=== PATIENT | male | born 2000 | race Caucasian/White ===

== ENCOUNTER 2020-10-16 03:05 | Emergency (ER) | payer BC ==
[2020-10-16] MEDS ORDERED: Ciprofloxacin 0.3% Ophth Soln 2.5 ML Bottle EARBOTH ONE (03:17)
[2020-10-16] MEDS ORDERED: Take Home: Amoxicillin 875 MG Tab, 2 Tab Pack PO ONE (03:18)
[2020-10-16] MEDS ORDERED: Take Home: Amoxicillin/Clavulanate K 875-125 MG Tab, 2 Tab Pack PO ONE (03:22)
--- NOTE | 2020-10-16 11:20 | EDM.PDOC ---
ED HPI GENERAL MEDICAL PROBLEM - General Chief Complaint: ENT Problem Stated Complaint: Right ear pain, URI symptoms Time Seen by Provider: 10/16/20 03:15 Source of Information: Reports: Patient History Limitations: Reports: No Limitations - History of Present Illness INITIAL COMMENTS - FREE TEXT/NARRATIVE: Pt. presents to ER with complaints of ruptured R TM. He states that he has been having troubles with ear pain for the past couple of days, and states that it started draining earlier in the evening. Denies any fever or chills. Pt. 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 States that he currently does not have an ENT that he is aware of. He denies any vertigo. No bleeding from the ear. Denies any recent trauma. Onset: Today Onset Date: 10/16/20 Location: Reports: Head Treatments CONTRACTS MANAGER: Reports: Other (see below) Other Treatments CONTRACTS MANAGER: [email or web address] Right ear Pain Score (Numeric/FACES): 8 - Related Data Allergies Allergy/AdvReac Type Severity Reaction Status Date / Time No Known Allergies Allergy Verified 10/16/20 03:25 Home Meds: Home Meds . [No Known Home Meds] 01/06/19 [History] Past Medical History - Past Health History Medical/Surgical History: Denies Medical/Surgical History Other Gastrointestinal History: liver disorder Social & Family History - Tobacco Use Tobacco Use Status *Q: Unknown Ever Used Tobacco ED ROS GENERAL - Review of Systems Review Of Systems: Comprehensive ROS is negative, except as noted in HPI. ED EXAM, GENERAL - Physical Exam Exam: See Below Exam Limited By: No Limitations General Appearance: Alert, WD/WN, No Apparent Distress Ear Exam: Right Ear: Discharge (clear/whitish discharge. Extent of perforation partially obstructed due to discharge.), TM Perforation Course - Vital Signs Last Recorded V/S: Last Vital Signs Temp 37.1 C 10/16/20 03:05 Pulse 104 H 10/16/20 03:05 Resp 16 10/16/20 03:05 BP 129/72 10/16/20 03:05 Pulse Ox 98 10/16/20 03:05 - Orders/Labs/Meds Meds: Medications Discontinued Medications Generic Name Dose Route Start Last Admin Trade Name Freq PRN Reason Stop Dose Admin Amoxicillin 2 packet 10/16/20 03:18 Take Home: Amoxicillin 875 Mg Tab, 2 Tab Pack PO 10/16/20 03:19 ONETIME ONE Amoxicillin/Clavulanate Potassium 2 packet 10/16/20 03:22 10/16/20 03:42 Take Home: Amoxicillin/Clavulanate K 875-125 Mg Tab, 2 Tab Pack PO 10/16/20 03:23 2 packet ONETIME ONE Administration Ciprofloxacin 1 ml 10/16/20 03:17 10/16/20 03:41 Ciprofloxacin 0.3% Ophth Soln 2.5 Ml Bottle EARBOTH 10/16/20 03:18 1 bottle ONETIME ONE Administration Departure - Departure Time of Disposition: 03:45 Disposition: Home, Self-Care 01 Clinical Impression: Tympanic membrane perforation - Discharge Information Instructions: Amoxicillin; Clavulanic Acid Tablets, Ciprofloxacin otic solution, Eardrum Rupture, [id number] Referrals: PCP,None [Ordering Only Provider] - Forms: ED Department Discharge Additional Instructions: Cipro drops 1 drops to R ear twice daily for 10 days Augmentin 875mg 1 tab twice daily for 10 days Follow-up with Dr. Ibrahim next week. TM ruptures often heal on their own, but you may need a referral to ENT. Sepsis Event Note (ED) - Evaluation Sepsis Screening Result: Possible Sepsis Risk - Focused Exam Vital Signs: Vital Signs Temp Pulse Resp BP Pulse Ox 10/16/20 03:05 37.1 C 104 H 16 129/72 98 - Problem List Review Problem List Initiated/Reviewed/Updated: Yes - Assessment/Plan Plan: Cipro drops 1 drops to R ear twice daily for 10 days Augmentin 875mg 1 tab twice daily for 10 days Follow-up with Dr. Ibrahim next week. TM ruptures often heal on their own, but you may need a referral to ENT.
== END 2020-10-16 03:50 | disposition home or self-care (01) ==
LOC: VM.ED 03:05
DX: H72.91 Unspecified perforation of tympanic membrane, right ear (principal)
CPT/HCPCS: 99282; 99283; A9270-GY